=== PATIENT | female | born 1945 | race Two or more races ===

== ENCOUNTER 2021-12-20 16:47 | Inpatient (IN) | payer OTHER ==
[~2021-12-20] VITALS: Ht 172.7 cm; Wt 34.9 kg
[~2021-12-20 16:47] MED LIST: BRONCOTRON-D S473 ML PO; DIOVAN HCT 80-11 TAB; FOLIC ACID0.4 MG; NEURONTIN300 MG; NORVASC5 MG; PREMARIN0.45 MG; SIMVASTATIN40 MG
[2021-12-22] MEDS ORDERED: CLOPIDOGREL BIS75 MG (13:21)
[2021-12-22] MEDS ORDERED: ATORVASTATIN CA20 MG (13:21)
[2021-12-22] MEDS ORDERED: LOPRESSOR25 MG (13:21)
[2021-12-22] MEDS ORDERED: LOSARTAN POTASS50 MG (13:21)
[2021-12-22] MEDS ORDERED: DULOXETINE HCL60 MG (13:22)
[2021-12-22] MEDS ORDERED: OPDIVO40 MG/4 ML (13:23)
[2021-12-22] MEDS ORDERED: ONDANSETRON4 MG/2 M5 (13:24)
[2021-12-22] MEDS ORDERED: FAMOTIDINE20 MG/2 M1 (13:24)
[2021-12-22] MEDS ORDERED: NIVESTYM300 MCG/1 (13:24)
[2021-12-22] MEDS ORDERED: ADCETRIS50 MG (13:24)
[2021-12-29] MEDS ORDERED: NORVASC2.5 M1 PO (07:05)
[2021-12-29] MEDS ORDERED: CLOPIDOGREL BIS75 MG PO (07:07)
[2021-12-29] MEDS ORDERED: ATORVASTATIN CA20 MG PO (07:07)
[2021-12-29] MEDS ORDERED: LOPRESSOR25 MG PO (07:08)
[2021-12-29] MEDS ORDERED: LOSARTAN POTASS50 MG PO (07:09)
== END 2021-12-29 21:31 | disposition home or self-care (01) | DRG 372 ==
LOC: ER 16:47 → SEC-K 12-21 07:23 → SURH 12-21 14:41
PROVIDERS: ADMIT Internal Medicine; ATTEND Internal Medicine
PROC: BW21ZZZ Computerized Tomography (CT Scan) of Abdomen and Pelvis (ICD-10-PCS; 2021-12-21)
PROC: 30233N1 Transfusion of Nonautologous Red Blood Cells into Peripheral Vein, Percutaneous Approach (ICD-10-PCS; principal; 2021-12-25)
PROC: B54CZZZ Ultrasonography of Left Lower Extremity Veins (ICD-10-PCS; 2021-12-28)
DX: A04.72 Enterocolitis due to Clostridium difficile, not specified as recurrent (principal); K51.00 Ulcerative (chronic) pancolitis without complications; N39.0 Urinary tract infection, site not specified; C81.70 Other Hodgkin lymphoma, unspecified site; E86.0 Dehydration; E87.6 Hypokalemia; D64.9 Anemia, unspecified; I10 Essential (primary) hypertension; B95.2 Enterococcus as the cause of diseases classified elsewhere; Z74.01 Bed confinement status; Z20.822 Contact with and (suspected) exposure to COVID-19; M79.18 Myalgia, other site